=== PATIENT | male | born 1940 | race Hispanic/Latino ===

== ENCOUNTER 2020-12-26 10:44 | Emergency (ER) | payer MEDICARE ==
[~2020-12-26] VITALS: Ht 170.2 cm; Wt 71.6 kg
[2020-12-26] MEDS ORDERED: OMEPRAZOLE DR20 MG PO (11:21)
[2020-12-26 11:59] LABS: HEMATOCRIT 38.6 % (39.0-50.0); IMMATURE GRANULOCYTES 0.3 % (0.0-5.0); MEAN CORPUSCULAR HGB 23.9 pG CALC (26.0-32.0); MEAN CORPUSCULAR HGB CONC 31.3 g/dL CAL (32.0-36.0); NEUT# 8.7 thou/uL (1.82-7.42); RED BLOOD COUNT 5.06 mill/uL (4.70-6.10); RED CELL DISTRI WIDTH 17.4 % (11.5-15.5)
[2020-12-26 12:12] LABS: HEMOGLOBIN 12.1 g/dl (14.0-18.0); MEAN CELL VOLUME 76.3 fL CALC (80.0-100.0)
[2020-12-26 12:15] LABS: ALBUMIN 4.4 g/dL (3.2-5.0); AMYLASE 80 u/l (30-110); BUN 14 mg/dL (8-23); BUN/CREATININE RATIO 9 (12-20 (CALC)); CARBON DIOXIDE 27 mmol/l (22-30); CHLORIDE 96 mmol/l (95-108); CREATININE 1.5 mg/dL (0.7-1.3); GFR 45 ML/MIN (>=60 (CALC)); GFR FOR AFR.AMER. 55 ML/MIN (>=60 (CALC)); LIPASE 75 u/l (23-300); POTASSIUM 4.4 mmol/l (3.5-5.1); TOTAL PROTEIN 7.5 g/dL (6.3-8.2)
[2020-12-26 12:17] LABS: ALKALINE PHOSPHATASE 194 u/l (38-126); ANION GAP 14 (6-22 (CALC)); BILIRUBIN, TOTAL 1.1 mg/dL (0.0-1.4); SGOT/AST 220 u/l (19-48); SODIUM 133 mmol/l (137-146)
[2020-12-26 12:27] LABS: MYOGLOBIN 65 ng/mL (0 - 121)
[2020-12-26 13:38] LABS: URINE BILIRUBIN - DIPSTICK NEGATIVE (NEGATIVE); URINE BLOOD DIPSTICK NEGATIVE (NEGATIVE); URINE COLOR YELLOW; URINE GLUCOSE - DIPSTICK NEGATIVE (NEGATIVE); URINE KETONE NEGATIVE (NEGATIVE); URINE LEUK ESTERASE NEGATIVE (NEGATIVE); URINE NITRITE - DIPSTICK NEGATIVE (Negative); URINE PH 7.5 (4.5-8.0); URINE PROTEIN - DIPSTICK TRACE mg/dL (NEG-TRACE); URINE UROBILINOGEN - DIPSTICK 0.2 E.U./dL (0.2)
[2020-12-26 16:00] VITALS: BP 150/76
== END 2020-12-27 16:00 | disposition home or self-care (01) ==
LOC: ED 10:44
PROVIDERS: Emergency Medicine
DX: R73.9 Hyperglycemia, unspecified (principal); B19.9 Unspecified viral hepatitis without hepatic coma; N28.1 Cyst of kidney, acquired; K21.9 Gastro-esophageal reflux disease without esophagitis; Z90.5 Acquired absence of kidney; E78.5 Hyperlipidemia, unspecified; Z85.528 Personal history of other malignant neoplasm of kidney; Z20.822 Contact with and (suspected) exposure to COVID-19

== ENCOUNTER 2024-11-07 17:46 | Emergency (ER) | payer MEDICARE ==
[~2024-11-07 17:46] MED LIST: OMEPRAZOLE DR20 MG PO
== END 2024-11-07 19:29 | disposition left against medical advice (07) ==
LOC: ED 17:46 → LWOBS 18:09
DX: Z53.21 Procedure and treatment not carried out due to patient leaving prior to being seen by health care provider (principal)